=== PATIENT | female | born 1980 | race Caucasian/White ===

== ENCOUNTER 2020-03-20 20:36 | Emergency (ER) | payer OTHER ==
[~2020-03-20] VITALS: Ht 165.1 cm; Wt 86.3 kg
[2020-03-20 20:54] VITALS: BP 161/103
--- NOTE | 2020-03-20 22:10 | PHYS DOC ---
Past Medical History Past Medical History: DVT Past Surgical History: Tubal ligation, Other Additional Past Surgical Histo: OVARIAN CYST REMOVAL Smoking Status: Current Some Day Smoker Alcohol Use: Occasionally General Adult EDM: Chief Complaint: DIFFICULTY SWALLOWING HPI: HPI: Patient is a 40 year old female presents with a chief complaint of sensation of foreign body in her throat. Patient states prior to arrival she was driving w [place] she was eating a grape. Patient states feels like she aspirated the great. Patient has some discomfort in her throat region. Pain is increased with breathing. Patient not salivating handing laying her oral secretions and she is in no respiratory distress Review of Systems: Review of Systems: Constitutional: Denies fever or chills. [] Eyes: Denies change in visual acuity. [] HENT: Positive sore throat Respiratory: Denies cough or shortness of breath. [] Cardiovascular: Denies chest pain or edema. [] GI: Denies abdominal pain, nausea, vomiting, bloody stools or diarrhea. [] : Denies dysuria. [] Musculoskeletal: Denies back pain or joint pain. [] Integument: Denies rash. [] Neurologic: Denies headache, focal weakness or sensory changes. [] Endocrine: Denies polyuria or polydipsia. [] Lymphatic: Denies swollen glands. [] Psychiatric: Denies depression or anxiety. [] Heart Score: Risk Factors: Risk Factors: DM, Current or recent (<one month) smoker, HTN, HLP, family history of CAD, obesity. Risk Scores: Score 0 - 3: 2.5% MACE over next 6 weeks - Discharge Home Score 4 - 6: 20.3% MACE over next 6 weeks - Admit for Clinical Observation Score 7 - 10: 72.7% MACE over next 6 weeks - Early Invasive Strategies Allergies: Allergies: Allergies Coded Allergies Type Severity Reaction Last Updated Verified Penicillins Allergy Severe Anaphylaxis 03/20/20 Yes Physical Exam: PE: Constitutional: Well developed, well nourished, no acute distress, non-toxic appearance. [] HENT: Normocephalic, atraumatic, bilateral external ears normal, oropharynx moist, no oral exudates, nose normal. [] Eyes: PERRLA, EOMI, conjunctiva normal, no discharge. [] Neck: Normal range of motion, no tenderness, supple, no stridor. [] Cardiovascular:Heart rate regular rhythm, no murmur [] Lungs & Thorax: Bilateral breath sounds clear to auscultation [] Abdomen: Bowel sounds normal, soft, no tenderness, no masses, no pulsatile m asses. [] Skin: Warm, dry, no erythema, no rash. [] Back: No tenderness, no CVA tenderness. [] Extremities: No tenderness, no cyanosis, no clubbing, ROM intact, no edema. [] Neurologic: Alert and oriented X 3, normal motor function, normal sensory function, no focal deficits noted. [] Psychologic: Affect normal, judgement normal, mood normal. [] Current Patient Data: Vital Signs: Vital Signs Date Time Temp Pulse Resp B/P (MAP) Pulse Ox O2 Delivery O2 Flow Rate FiO2 03/20/20 20:54 97.7 85 18 161/103 (122) 98 Room Air 97.7 EKG: EKG: [] Radiology/Procedures: Radiology/Procedures: [] Impression: Two-view chest: Technique: PA and lateral views of the chest were obtained. Clinical History: Reason: aspiration of grape. chest discomfort / Spl. Instructions: / History: Comparison: None. Findings: The heart and pulmonary vasculature appear within normal limits. The lungs are clear. The pleural margins are clear. Impression: No acute chest process is seen. End impression Two-view soft tissue neck AP lateral views There is straightening of the normal cervical lordosis. As no prevertebral soft tissue swelling. Epiglottis appears normal. IMPRESSION: No acute findings. Course & Med Decision Making: Course & Med Decision Making Pertinent Labs and Imaging studies reviewed. (See chart for details) []Radiology negative. Will discharge patient home. Dragon Disclaimer: Dragon Disclaimer: This electronic medical record was generated, in whole or in part, using a voice recognition dictation system. Departure Departure Referrals: LOBO TORRES MD (PCP) Justicifation of Admission Dx: Justifications for Admission: Justification of Admission Dx: N/A KAHLIL CLIFFORD DO Mar 20, 2020 22:10
--- NOTE | 2020-03-20 22:37 | RAD ---
CHEST PA LATERAL, NECK SOFT TISSUE Two-view chest: Technique: PA and lateral views of the chest were obtained. Clinical History: Reason: aspiration of grape. chest discomfort / Spl. Instructions: / History: Comparison: None. Findings: The heart and pulmonary vasculature appear within normal limits. The lungs are clear. The pleural margins are clear. Impression: No acute chest process is seen. End impression Two-view soft tissue neck AP lateral views There is straightening of the normal cervical lordosis. As no prevertebral soft tissue swelling. Epiglottis appears normal. IMPRESSION: No acute findings. Electronically signed by: Noah Naik III, MD (03/20/2020 10:34 PM) [facility]
--- NOTE | 2020-03-20 23:27 | RAD ---
PQRS Compliance Statement: One or more of the following individualized dose reduction techniques were utilized for this examination: 1. Automated exposure control 2. Adjustment of the mA and/or kV according to patient size 3. Use of iterative reconstruction technique CT SOFT TISSUE NECK WO CONTRST Clinical Indication: Reason: fb sensation throat Comparison: None. TECHNIQUE: Helical CT imaging of the soft tissues of the neck is performed without IV contrast. Findings: Sensitivity is decreased without IV contrast. There is no midline shift of the visualized brain. Globes and orbits are intact. Paranasal sinuses and mastoid air cells are clear. The parapharyngeal fat planes are preserved. No tonsillar enlargement is seen. Epiglottis and aryepiglottic folds appear normal. Piriform sinuses are symmetric. Retropharyngeal soft tissues are unremarkable. The thyroid, submandibular, and parotid glands are symmetric. Tiny intraparotid lymph nodes are noted. No radiopaque foreign body is identified. Scattered subcentimeter cervical lymph nodes. There is no adenopathy. Upper mediastinum is unremarkable. Upper lungs are clear. Straightening of normal cervical lordosis may be positional or due to muscle spasm. Cervical spine alignment is maintained. IMPRESSION: No acute abnormality is identified. Electronically signed by: Terell Schmidt MD (03/20/2020 11:24 PM) [facility]
== END 2020-03-20 23:37 | disposition home or self-care (01) ==
LOC: ER 20:36
DX: R09.89 Other specified symptoms and signs involving the circulatory and respiratory systems (principal); R07.0 Pain in throat; R13.10 Dysphagia, unspecified; F17.200 Nicotine dependence, unspecified, uncomplicated; Z86.718 Personal history of other venous thrombosis and embolism; Z88.0 Allergy status to penicillin
CPT/HCPCS: 70360; 70490; 71046; 99284